=== PATIENT | male | born 1960 | race Caucasian/White ===

== ENCOUNTER → 2018-02-12 | Outpatient (CLI) | payer OTHER ==
[~2018-02-12] MED LIST: MELO15TA24 PO
== END | disposition home or self-care (01) ==
LOC: STAR 09:41
PROVIDERS: ATTEND Orthopaedic Surgery
DX: Z02.9 Encounter for administrative examinations, unspecified (principal)

== ENCOUNTER 2018-02-21 05:39 | Day surgery (SDC) | payer OTHER ==
[~2018-02-21] VITALS: Ht 182.9 cm; Wt 99.0 kg
[2018-02-21] MEDS ORDERED: LACTATED RINGERS 1,000 ML IV SCH (06:03)
[2018-02-21 06:07] VITALS: BP 118/78
[2018-02-21] MEDS ORDERED: FENTANYL PF 250 MCG/5ML ONE (06:17)
[2018-02-21] MEDS ORDERED: MIDAZOLAM 1 MG/ML, 2ML ONE (06:17)
[2018-02-21] MEDS ORDERED: EPINEPHRINE 1 MG/ML, 1ML ONE ×2 (06:39→09:01)
[2018-02-21] MEDS ORDERED: BACITRACIN 50,000 UNIT ONE (06:40)
[2018-02-21] MEDS ORDERED: PROPOFOL 10 MG/ML, 20ML ONE (07:02)
[2018-02-21] MEDS ORDERED: CEFAZOLIN 1,000 MG ONE (07:02)
[2018-02-21] MEDS ORDERED: NEOSTIGMINE 1 MG/ML, 10ML ONE (07:02)
[2018-02-21] MEDS ORDERED: ONDANSETRON 2MG/ML, 2ML ONE (07:02)
[2018-02-21] MEDS ORDERED: DEXAMETHASONE 4 MG/ML, 1ML ONE (07:02)
[2018-02-21] MEDS ORDERED: ROCURONIUM 10 MG/ML,10ML ONE (07:02)
[2018-02-21] MEDS ORDERED: GLYCOPYRROLATE 0.2MG/1ML, 5ML ONE (07:02)
[2018-02-21] MEDS ORDERED: ALBUTEROL SULFATE 2.5 MG/3 ML NPPB PRN (07:30)
[2018-02-21] MEDS ORDERED: hydrALAzine 20 MG/ML, 1ML IV PRN (07:30)
[2018-02-21] MEDS ORDERED: FENTANYL PF 100 MCG/2ML IV PRN (07:30)
[2018-02-21] MEDS ORDERED: MEPERIDINE/PF 25MG/0.5ML IVPush PRN (07:30)
[2018-02-21] MEDS ORDERED: ACETAMINOPHEN 325 MG TABLET PO PRN (07:30)
[2018-02-21] MEDS ORDERED: LABETALOL 5MG/ML, 20ML IV PRN (07:30)
[2018-02-21] MEDS ORDERED: KETOROLAC 30 MG/1 ML IV PRN (07:30)
[2018-02-21] MEDS ORDERED: DIAZEPAM 5 MG/ML, 2ML IVPush PRN (07:30)
[2018-02-21] MEDS ORDERED: OXYcodone 5 MG/5 ML ORAL.SOL UDC PO PRN (07:30)
[2018-02-21] MEDS ORDERED: HYDROmorphone 2 MG/ML, 1ML IVPush PRN (07:30)
[2018-02-21] MEDS ORDERED: PROMETHAZINE 25 MG/ML, 1ML IV PRN (07:30)
== END 2018-02-21 11:35 | disposition home or self-care (01) ==
LOC: OUT 05:39
PROVIDERS: ATTEND Orthopaedic Surgery
DX: S43.431A Superior glenoid labrum lesion of right shoulder, initial encounter (principal); M75.111 Incomplete rotator cuff tear or rupture of right shoulder, not specified as traumatic; M75.41 Impingement syndrome of right shoulder; M75.21 Bicipital tendinitis, right shoulder; X58.XXXA Exposure to other specified factors, initial encounter; Y93.89 Activity, other specified; Y92.89 Other specified places as the place of occurrence of the external cause; Y99.8 Other external cause status; J45.909 Unspecified asthma, uncomplicated
CPT/HCPCS: 29822; 29826; 29827; 29828; 64415; C1713; J0171; J0690; J1100; J2250; J2405; J2704; J2710; J3010; J3490

== ENCOUNTER 2019-01-30 14:26 | Day surgery (SDC) | payer OTHER ==
[~2019-01-30] VITALS: Ht 180.3 cm; Wt 99.0 kg
[2019-01-30] MEDS ORDERED: DIPH,PERTUSS(ACELL),TET VAC/PF 0.5 ML IM-VACC ONE ×2 (15:00→15:05)
--- NOTE | 2019-01-30 15:12 | NUR ---
ALL RESULTS ARE BACK AT THIS TIME. CHART UP FOR RECHECK.
[2019-01-30] MEDS ORDERED: LIDOCAINE-MPF 1%, 5ML ONE (16:11)
--- NOTE | 2019-01-30 16:24 | NUR ---
BREAK RN: PA AT BEDSIDE TO REMOVE FB NOW.
--- NOTE | 2019-01-30 17:30 | NUR ---
PT RESTING COMFORTABLY ON GURNEY. ARCENIO.
[2019-01-30] MEDS ORDERED: CEFAZOLIN PMX 1GM/50ML 50 ML ONE (18:09)
[2019-01-30 18:22] VITALS: BP 126/75
--- NOTE | 2019-01-30 18:23 | NUR ---
IV START. ABX ADMIN PER MAY. PT RESTING ON [facility].
--- NOTE | 2019-01-30 18:47 | NUR ---
REPORT GIVEN TO AUGUSTINE CUBA IN OR.
[2019-01-30] MEDS ORDERED: SODIUM CHLORIDE FLUSH 10ML SYR IVF ONE (19:00)
[2019-01-30] MEDS ORDERED: CEFAZOLIN PMX 1GM/50ML 50 ML IVPB ONE (19:00)
[2019-01-30] MEDS ORDERED: BUPIVACAINE/PF 0.5% ONE (19:07)
[2019-01-30] MEDS ORDERED: FENTANYL PF 100 MCG/2ML ONE (19:24)
[2019-01-30] MEDS ORDERED: MIDAZOLAM 1 MG/ML, 2ML ONE (19:24)
[2019-01-30] MEDS ORDERED: ONDANSETRON 2MG/ML, 2ML IVPush PRN (19:30)
[2019-01-30] MEDS ORDERED: OXYcodone/APAP 5/325MG TABLET PO PRN (19:30)
[2019-01-30] MEDS ORDERED: PROMETHAZINE 25 MG/ML, 1ML IM PRN (19:30)
[2019-01-30] MEDS ORDERED: HYDROmorphone 1 MG/ML, 1ML INJ IM PRN (19:30)
[2019-01-30] MEDS ORDERED: KETOROLAC 30 MG/1 ML IVPush SCH (19:30)
[2019-01-30] MEDS ORDERED: ACETAMINOPHEN 325 MG TABLET PO PRN ×2 (19:30→20:30)
[2019-01-30] MEDS ORDERED: PROPOFOL 10 MG/ML, 20ML ONE (19:43)
[2019-01-30] MEDS ORDERED: ONDANSETRON 2MG/ML, 2ML ONE ×2 (19:43→19:44)
[2019-01-30] MEDS ORDERED: DEXAMETHASONE 4 MG/ML, 1ML ONE ×2 (19:43→19:44)
[2019-01-30] MEDS ORDERED: CEFAZOLIN 1,000 MG ONE ×2 (19:44)
[2019-01-30] MEDS ORDERED: ONDANSETRON 2MG/ML, 2ML IV PRN (20:30)
[2019-01-30] MEDS ORDERED: MIDAZOLAM 1 MG/ML, 2ML IV PRN (20:30)
[2019-01-30] MEDS ORDERED: ALBUTEROL SULFATE 2.5 MG/3 ML NPPB PRN (20:30)
[2019-01-30] MEDS ORDERED: EPHEDRINE 50 MG/ML, 1ML IVPush PRN (20:30)
[2019-01-30] MEDS ORDERED: ONDANSETRON ODT 8 MG PO PRN (20:30)
[2019-01-30] MEDS ORDERED: LABETALOL 5MG/ML, 20ML IV PRN (20:30)
[2019-01-30] MEDS ORDERED: DIAZEPAM 5 MG/ML, 2ML IVPush PRN (20:30)
[2019-01-30] MEDS ORDERED: PROMETHAZINE 25 MG/ML, 1ML IV PRN (20:30)
[2019-01-30] MEDS ORDERED: hydrALAzine 20 MG/ML, 1ML IV PRN (20:30)
[2019-01-30] MEDS ORDERED: MEPERIDINE/PF 25MG/ML,1ML IVPush PRN (20:30)
[2019-01-30] MEDS ORDERED: HYDROmorphone 2 MG/ML, 1ML IVPush PRN (20:30)
[2019-01-30] MEDS ORDERED: OXYcodone 5 MG/5 ML ORAL.SOL UDC PO PRN (20:30)
[2019-01-30] MEDS ORDERED: HALOPERIDOL 5 MG/ML IV PRN (20:30)
[2019-01-30] MEDS ORDERED: FENTANYL PF 100 MCG/2ML IV PRN (20:30)
[2019-01-30] MEDS ORDERED: PROMETHAZINE 12.5 MG SUPP PR PRN (20:30)
== END 2019-01-30 22:54 | disposition home or self-care (01) ==
LOC: OR 17:18 → EDIP 17:58 → OUT 17:58 → UNDOADMOB 17:58 → OUT 19:02 → EDSTATUS 19:15 → OUT 22:54 → EDIP 01-31 18:30
PROVIDERS: ATTEND Emergency Medicine
DX: S61.041A Puncture wound with foreign body of right thumb without damage to nail, initial encounter (principal); Z23 Encounter for immunization; F17.210 Nicotine dependence, cigarettes, uncomplicated; Z79.899 Other long term (current) drug therapy; X58.XXXA Exposure to other specified factors, initial encounter; Y93.89 Activity, other specified; Y92.89 Other specified places as the place of occurrence of the external cause; Y99.8 Other external cause status
CPT/HCPCS: 26075; 73120; 73140; 90471; 90715; J0690; J1100; J2250; J2405; J2704; J3010; 76000

== ENCOUNTER → 2020-10-06 | Outpatient (CLI) | payer OTHER ==
[2020-10-06 15:32] LABS: BASOPHILS % (AUTO) 1 % (0-1); EOSINOPHILS % (AUTO) 2 % (1-7); LYMPHOCYTES % (AUTO) 39 % (22-44); MEAN CORPUSCULAR HEMOGLOBIN 32.6 pg (27.5-34.5); MEAN CORPUSCULAR HGB CONC 34.4 g/dL (33.2-36.2); MEAN PLATELET VOLUME 8.7 fL (7.4-10.4); MONOCYTES % (AUTO) 6 % (2-9); NEUTROPHILS % (AUTO) 53 % (42-75); PLATELET COUNT 142 x10^3/uL (130-400); RED BLOOD COUNT 4.55 x10^6/uL (4.38-5.82); RED CELL DISTRIBUTION WIDTH 12.8 % (9.4-14.8)
[2020-10-06 15:41] LABS: ALANINE AMINOTRANSFERASE 36 U/L (12-78); ALBUMIN 3.5 g/dL (3.4-5.0); ANION GAP 4 mmol/L (5-15); CALCIUM 8.5 mg/dL (8.5-10.1); CHLORIDE 110 mmol/L (98-107); CREATININE 0.96 mg/dL (0.7-1.3)
[2020-10-06 15:43] LABS: ALKALINE PHOSPHATASE 88 U/L (45-117); BILIRUBIN,TOTAL 0.3 mg/dL (0.2-1.0); TOTAL PROTEIN 6.9 g/dL (6.4-8.2)
== END | disposition home or self-care (01) ==
LOC: STAR 14:37
PROVIDERS: ATTEND Orthopaedic Surgery
DX: Z01.818 Encounter for other preprocedural examination (principal); Z51.89 Encounter for other specified aftercare; M16.12 Unilateral primary osteoarthritis, left hip; M19.011 Primary osteoarthritis, right shoulder; M75.121 Complete rotator cuff tear or rupture of right shoulder, not specified as traumatic
CPT/HCPCS: 36415; 80053; 85025; 87081; 87147; 93005

== ENCOUNTER 2020-10-20 13:17 | Observation (INO) | payer OTHER ==
[~2020-10-20] VITALS: Ht 182.9 cm; Wt 84.0 kg
[2020-10-20] MEDS ORDERED: LACTATED RINGERS 1,000 ML IV SCH (14:00)
[2020-10-20] MEDS ORDERED: CHLORHEXIDINE 15 ML UDC PO ONE (14:00)
[2020-10-20] MEDS ORDERED: OXYcodone 5 MG/5 ML ORAL.SOL UDC PO PRN (14:30)
[2020-10-20] MEDS ORDERED: HYDROmorphone 1 MG/ML, 1ML INJ IVPush PRN (14:30)
[2020-10-20] MEDS ORDERED: ONDANSETRON 2MG/ML, 2ML IVPush PRN (14:30)
[2020-10-20] MEDS ORDERED: ACETAMINOPHEN 325 MG TABLET PO PRN ×2 (14:30→21:00)
[2020-10-20] MEDS ORDERED: hydrALAzine 20 MG/ML, 1ML IV PRN (14:30)
[2020-10-20] MEDS ORDERED: FENTANYL PF 100 MCG/2ML IV PRN (14:30)
[2020-10-20] MEDS ORDERED: morphine SULFATE 10 MG/ML, 1ML IVPush PRN (14:30)
[2020-10-20] MEDS ORDERED: LABETALOL 5MG/ML, 20ML IV PRN (14:30)
[2020-10-20] MEDS ORDERED: MEPERIDINE/PF 25MG/0.5ML IVPush PRN (14:30)
[2020-10-20] MEDS ORDERED: [UNRECOGNIZED DRUG - REMARK] (14:43)
[2020-10-20] MEDS ORDERED: ROPIvacaine/PF 0.5%, 30 ML ONE (15:11)
[2020-10-20] MEDS ORDERED: KETOROLAC 60 MG/2 ML ONE (15:11)
[2020-10-20] MEDS ORDERED: VANCOMYCIN 1,000 MG ONE (15:12)
[2020-10-20] MEDS ORDERED: GENTAMICIN 80 MG/2 ML ONE (15:12)
[2020-10-20] MEDS ORDERED: morphine SULFATE/PF 1 MG/ML, 10ML ONE (15:12)
[2020-10-20] MEDS ORDERED: MIDAZOLAM 1 MG/ML, 2ML ONE (15:44)
[2020-10-20] MEDS ORDERED: FENTANYL PF 250 MCG/5ML ONE (15:44)
[2020-10-20] MEDS ORDERED: ROCURONIUM 10MG/ML,5ML ONE (15:45)
[2020-10-20] MEDS ORDERED: PROPOFOL 10 MG/ML, 20ML ONE (15:45)
[2020-10-20] MEDS ORDERED: GLYCOPYRROLATE 0.2MG/1ML, 5ML ONE (15:45)
[2020-10-20] MEDS ORDERED: CEFAZOLIN 1,000 MG ONE (15:45)
[2020-10-20] MEDS ORDERED: NEOSTIGMINE 1 MG/ML, 10ML ONE (15:45)
[2020-10-20] MEDS ORDERED: TRANEXAMIC ACID 100 MG/ML, 10ML ONE ×2 (16:43)
[2020-10-20] MEDS ORDERED: LIDOCAINE-MPF 2% ,5ML ONE (17:34)
[2020-10-20] MEDS ORDERED: TRANEXAMIC ACID 1,000 MG in SODIUM CHLORIDE 0.9% 100 ML IVPB ONE (19:00)
[2020-10-20 19:30] VITALS: BP 124/73
[2020-10-20] MEDS ORDERED: MORPHINE SULFATE 4 MG/ML, 1ML IVPush PRN (21:00)
[2020-10-20] MEDS ORDERED: OXYcodone/APAP 10/325MG TABLET PO PRN (21:00)
[2020-10-20] MEDS ORDERED: ONDANSETRON ODT 4 MG PO PRN (21:00)
[2020-10-20] MEDS ORDERED: BISACODYL 10 MG SUPP PR PRN (21:00)
[2020-10-20] MEDS ORDERED: OXYcodone IR 5MG TABLET PO PRN (21:00)
[2020-10-20] MEDS ORDERED: MAGNESIUM HYDROXIDE 8%, 30ML UDC PO PRN (21:00)
[2020-10-20] MEDS ORDERED: CEFAZOLIN PMX 2GM/50ML 50 ML IVPB SCH (21:00)
[2020-10-20] MEDS ORDERED: DIPHENHYDRAMINE 25 MG CAPSULE PO PRN (21:00)
[2020-10-20] MEDS ORDERED: POLYETHYLENE GLYCOL 17 GM PACKET PO PRN (21:00)
[2020-10-20] MEDS: KETOROLAC 30 MG/1 ML IVPush SCH (22:07)
[2020-10-20] MEDS: D5%-0.45NACL+KCL 20MEQ 1,000 ML IV SCH (22:07)
[2020-10-20] MEDS: DOCUSATE 100 MG CAPSULE PO SCH (22:09)
[2020-10-21] MEDS ORDERED: DEXAMETHASONE 4 MG/ML, 1ML ONE
[2020-10-21] MEDS ORDERED: ONDANSETRON 2MG/ML, 2ML ONE
[2020-10-21] MEDS: CEFAZOLIN PMX 2GM/50ML 50 ML IVPB SCH ×2 (00:41→08:40)
[2020-10-21 01:01] VITALS: BP 121/74
[2020-10-21 04:40] VITALS: BP 121/64
[2020-10-21] MEDS ORDERED: ASPIRIN 325 MG TABLET EC PO SCH ×2 (06:00)
[2020-10-21] MEDS: KETOROLAC 30 MG/1 ML IVPush SCH (06:26)
[2020-10-21] MEDS: D5%-0.45NACL+KCL 20MEQ 1,000 ML IV SCH (06:26)
[2020-10-21 08:30] VITALS: BP 122/72
[2020-10-21] MEDS: DOCUSATE 100 MG CAPSULE PO SCH (08:41)
[2020-10-21] MEDS ORDERED: ASPI81TA45 PO (09:53)
== END 2020-10-21 11:45 | disposition home or self-care (01) ==
LOC: OR 13:17 → 4NE 19:44 → OR 21:24 → 4NE 21:25
PROVIDERS: ADMIT Orthopaedic Surgery; ATTEND Orthopaedic Surgery
DX: M16.12 Unilateral primary osteoarthritis, left hip (principal)
CPT/HCPCS: 27130; 36415; 86850; 86900; 96361; 96365; 96366; 96375; 96376; 97110; 97161; C1713; C1776; G0378; J0690; J1100; J1580; J1885; J2250; J2274; J2405; J2704; J2710; J2795; J3010; J3370; J3480; J3490; J7120